=== PATIENT | female | born 1945 | race African-American/Black ===

== ENCOUNTER 2022-06-16 10:20 | Emergency (ER) | payer MEDICARE, MEDICAID ==
[~2022-06-16] VITALS: Ht 152.4 cm; Wt 50.0 kg
[2022-06-16] MEDS ORDERED: IPRATROPIUM BROMIDE (0.02%) 0.5MG/2.5ML NEB HHN STA (10:30)
[2022-06-16] MEDS ORDERED: METHYLPREDNISOLONE SOD SUCC 125 MG/2 ML VIAL IV STA (10:30)
[2022-06-16] MEDS ORDERED: ALBUTEROL (0.083%) 2.5MG/3ML NEB HHN STA (10:30)
[2022-06-16] MEDS ORDERED: LEVOFLOXACIN 500MG PREMIX 100 ML IV ONE (11:00)
[2022-06-16 11:26] LABS: BASOPHILS % 0.6 % (0.0-2.0); EOSINOPHILS % 1.9 % (0.0-5.0); HEMATOCRIT. 41.4 % (36.0-48.0); HEMOGLOBIN. 13.7 g/dL (12.0-16.0); LYMPHOCYTES % 32.2 % (20.0-50.0); MEAN CORPUSCULAR HEMOGLOBIN 28.6 pg (28.0-32.0); MEAN CORPUSCULAR VOLUME 86.3 fL (81.0-99.0); MEAN PLATELET VOLUME 7.6 fl (7.4-10.4); MONOCYTES % 11.3 % (2.0-8.0); PLATELET 341 x1000/uL (130-400); RED CELL DISTRIBUTION WIDTH 13.5 % (11.6-14.6)
[2022-06-16 11:27] LABS: CHLORIDE 102 mEq/L (98-107)
[2022-06-16] MEDS ORDERED: POTASSIUM CHLORIDE 20MEQ TABLET SR PO ONE (11:45)
[2022-06-16] MEDS ORDERED: KCL 10MEQ/50ML PREMIX 50 ML IV ONE (11:45)
[2022-06-16] MEDS ORDERED: FUROSEMIDE 20MG/2ML VIAL IVP ONE (11:45)
[2022-06-16 13:00] VITALS: BP 146/90
[2022-06-16] MEDS ORDERED: ONDANSETRON HCL 4MG/2ML INJ IV PRN (19:00)
[2022-06-16] MEDS ORDERED: BENZONATATE 100MG CAPSULE PO PRN (19:00)
[2022-06-16] MEDS ORDERED: ACETAMINOPHEN 325MG TABLET PO PRN (19:00)
[2022-06-16] MEDS ORDERED: IPRATROPIUM/ALBUTEROL 0.5-3(2.5)MG/3ML NEB ONE (19:26)
[2022-06-17] MEDS ORDERED: IPRATROPIUM/ALBUTEROL 0.5-3(2.5)MG/3ML NEB HHN SCH
== END 2022-06-16 19:34 | disposition left against medical advice (07) ==
LOC: ER 10:54 → EDBEDREQTM 13:24 → EDBEDREQ 13:24 → CANRESERV 19:23 → ENRESERV 19:23 → ER 19:34 → CANBEDREQ 06-17 01:57
DX: J18.9 Pneumonia, unspecified organism (principal); I10 Essential (primary) hypertension; E87.6 Hypokalemia; J44.9 Chronic obstructive pulmonary disease, unspecified; E78.00 Pure hypercholesterolemia, unspecified; Z95.1 Presence of aortocoronary bypass graft; Z20.822 Contact with and (suspected) exposure to COVID-19
CPT/HCPCS: 36415; 71045; 80053; 82962; 83605; 83690; 83880; 84145; 84484; 85025; 87040; 87426; 93005; 94640; 94644; 96365; 96366; 96375; 99291; C9803; J1940; J1956; J2930; J3480

== ENCOUNTER 2023-08-11 23:20 | Emergency (ER) | payer MEDICARE, OTHER ==
[~2023-08-11] VITALS: Ht 165.1 cm; Wt 59.0 kg
[~2023-08-11 23:20] MED LIST: APIX2.5T MT; ASCO500T20 PO; ASPI-1406 PO; ATOR10TA69 PO; BUME2TAB7 MT; DONE5TAB33 PO; FAMO20TA8 PO; METF-414 PO; METO-385 PO; ZINC1CAP2 PO
[2023-08-11 23:22] VITALS: O2SAT 99
[2023-08-11] MEDS ORDERED: SODIUM CHLORIDE 0.9% 1,000 ML IV ONE (23:45)
[2023-08-12 00:17] LABS: CHLORIDE 105 mEq/L (98-107); INDEX HEMOLYSI 1 (1-3); INDEX ICTERIC 1 (1-4); INDEX LIPEMIC 1 (1-3); POTASSIUM 3.8 mEq/L (3.5-5.1); SODIUM 140 mEq/L (136-145)
[2023-08-12 00:18] LABS: BASOPHILS % 0.8 % (0.0-2.0); HEMATOCRIT. 36.3 % (36.0-48.0); HEMOGLOBIN. 11.4 g/dL (12.0-16.0); LYMPHOCYTES % 20.7 % (20.0-50.0); MEAN CORPUSCULAR HEMOGLOBIN 26.8 pg (28.0-32.0); MEAN CORPUSCULAR HGB CONC 31.5 g/dL (31.0-37.0); MEAN CORPUSCULAR VOLUME 85.1 fL (81.0-99.0); MEAN PLATELET VOLUME 7.9 fl (7.4-10.4); MONOCYTES % 12.9 % (2.0-8.0); NEUTROPHILS % 63.6 % (40.0-76.0); PLATELET 181 x1000/uL (130-400); RED BLOOD CELL COUNT 4.26 mill/uL (4.2-5.4); RED CELL DISTRIBUTION WIDTH 18.2 % (11.6-14.6); WHITE BLOOD COUNT 6.7 x1000/uL (4.5-11.0)
[2023-08-12 00:26] LABS: ALANINE AMINOTRANSFERASE 55 IU/L (13-61); ALBUMIN 3.3 g/dL (3.4-5.0); ASPARTATE AMINOTRANSFERASE 36 IU/L (15-37); BILIRUBIN TOTAL 1.5 mg/dL (0.1-1.0); CALCIUM 8.7 mg/dL (8.5-10.1); CARBON DIOXIDE 30 mEq/L (21-32); CREATININE 1.2 mg/dL (0.6-1.3); GLUCOSE 187 mg/dL (70-105); NT PRO B-TYPE NATRIURETIC PEP 12841 pg/mL (5-125); PROTEIN TOTAL 6.7 g/dL (6.0-8.3); TROPONIN I HIGH SENSITIVITY 34 ng/L (<54); UREA NITROGEN BLOOD 28 mg/dL (7-21)
[2023-08-12 00:37] LABS: LACTIC ACID 2.5 mmol/L (0.4-2.0)
[2023-08-12 01:45] LABS: TROPONIN I HIGH SENSITIVITY 33 ng/L (<54)
[2023-08-12 16:15] VITALS: BP 138/78; PULSE 66; RESP 16; TEMP 98.7
== END 2023-08-12 16:15 | disposition home or self-care (01) ==
LOC: ER 23:20
DX: I50.9 Heart failure, unspecified (principal); R53.1 Weakness; I11.0 Hypertensive heart disease with heart failure; J44.9 Chronic obstructive pulmonary disease, unspecified; E78.00 Pure hypercholesterolemia, unspecified
CPT/HCPCS: 99285; 96360; 71045; 80053; 83880; 83605 ×2; 85025; 84484 ×2; 36415 ×2; 93005; J7030

== ENCOUNTER 2023-10-07 21:01 | Emergency (ER) | payer MEDICARE, MEDICAID ==
[~2023-10-07] VITALS: Ht 172.7 cm; Wt 70.0 kg
[2023-10-07 20:40] VITALS: PULSE 49; RESP 18
[2023-10-07] MEDS ORDERED: PROPOFOL 10MG/ML 100ML 100 ML IV SCH (21:15)
[2023-10-07] MEDS ORDERED: PANTOPRAZOLE SODIUM 40 MG/VIAL IV ONE (21:15)
[2023-10-07 21:20] VITALS: BP 0/0; PULSE 0; RESP 0; O2SAT 0
[2023-10-07] MEDS ORDERED: SODIUM CHLORIDE 0.9% 1000ML BAG (SEPSIS BOLUS) IV ONE (21:30)
== END 2023-10-07 21:50 ==
LOC: ER 21:01
DX: I46.9 Cardiac arrest, cause unspecified (principal); K92.2 Gastrointestinal hemorrhage, unspecified; I11.0 Hypertensive heart disease with heart failure; I50.9 Heart failure, unspecified; E78.00 Pure hypercholesterolemia, unspecified; J44.9 Chronic obstructive pulmonary disease, unspecified; F19.90 Other psychoactive substance use, unspecified, uncomplicated
CPT/HCPCS: 31500; 93005; 99291; C9113; J2704; J7030; Z7610 ×3; 94002